=== PATIENT | male | born 1960 | race Two or more races ===

== ENCOUNTER 2021-12-01 06:06 | Observation (INO) | payer BC ==
[~2021-12-01] VITALS: Ht 172.7 cm; Wt 72.6 kg
[~2021-12-01 06:06] MED LIST: AMOXICILLIN500 M1 PO; CELEBREX200 MG PO; IBUPROFEN800 MG PO; LEVOTHYROXINE75 MCG PO; LOSARTAN POTASS25 MG PO; LYRICA75 MG PO; MELOXICAM PO; METHOCARBAMOL750 MG PO; METHYLPREDNISONE PO; TYLENOL WITH C1 EACH PO
[2021-12-01] MEDS ORDERED: CELECOXIB 200 MG CAP ONE (06:41)
[2021-12-01] MEDS ORDERED: DEXAMETHASONE SOD PHOS 10 MG/1 ML VIAL ONE (06:41)
[2021-12-01] MEDS ORDERED: GABAPENTIN 300 MG CAP ONE (06:42)
[2021-12-01] MEDS ORDERED: Vancomycin IV 1,000 MG ONE (06:56)
[2021-12-01] MEDS ORDERED: SODIUM CHLORIDE 0.9% 500ML 500 ML ONE (06:56)
[2021-12-01] MEDS ORDERED: TRANEXAMIC ACID 20 ML ONE (06:57)
[2021-12-01] MEDS ORDERED: ROPIVACAINE 246.25 MG, EPINEPHRINE HCL 1:1000 1ML 0.5 MG, CLONIDINE HCL 0.08 MG, KETORO... INJ ONE ×5 (08:00)
[2021-12-01] MEDS ORDERED: SODIUM CHLORIDE 0.9% 1000ML 1,000 ML IV SCH (08:45)
[2021-12-01] MEDS ORDERED: DIPHENHYDRAMINE HCL INJ 50 MG/ML VIAL IV PRN (08:45)
[2021-12-01] MEDS ORDERED: DOCUSATE SODIUM 100 MG CAP PO PRN (08:45)
[2021-12-01] MEDS ORDERED: HYDROCODONE/APAP 5MG-325MG TAB PO PRN (08:45)
[2021-12-01] MEDS ORDERED: ZOLPIDEM TARTRATE 5 MG TAB PO PRN (08:45)
[2021-12-01] MEDS ORDERED: ACETAMINOPHEN 650 MG SUPP PR PRN (08:45)
[2021-12-01] MEDS ORDERED: HYDROCODONE/APAP 7.5MG-325MG 1 EA TAB PO PRN (08:45)
[2021-12-01] MEDS ORDERED: KETOROLAC TROMETHAMINE 30 MG/ML VIAL IV PRN (08:45)
[2021-12-01] MEDS ORDERED: ONDANSETRON HCL INJ 2MG/ML 2ML 2 MG/ML VIAL IV PRN (08:45)
[2021-12-01] MEDS: CELECOXIB 100 MG CAP PO SCH ×2 (09:00→16:22)
[2021-12-01] MEDS: ASPIRIN 325 MG TAB PO SCH ×2 (09:00→16:22)
[2021-12-01 10:42] VITALS: BP 111/79
[2021-12-01 10:49] VITALS: BP 111/79
[2021-12-01 10:50] VITALS: BP 111/79
[2021-12-01] MEDS ORDERED: ACETAMINOPHEN 1000 MG/100 ML IV PRN (12:00)
[2021-12-01] MEDS ORDERED: PROPOFOL IV EMULSION 10 MG/ML 50 ML VIAL IV ONE (12:52)
[2021-12-01] MEDS ORDERED: POVIDONE IODINE 0.05% 0.05 % ML PO ONE (12:52)
[2021-12-01] MEDS ORDERED: FENTANYL CITRATE/PF 100MCG/2 ML INJ ONE (12:58)
[2021-12-01] MEDS ORDERED: KETAMINE HCL INJ 50 MG/ML 10 ML VIAL ONE (12:58)
[2021-12-01] MEDS ORDERED: MIDAZOLAM HCL 2 MG/2 ML VIAL ONE (12:58)
[2021-12-01 16:00] VITALS: BP 101/69
[2021-12-01] MEDS ORDERED: ASPIRIN81 MG PO (17:43)
== END 2021-12-01 18:26 | disposition home or self-care (01) ==
LOC: OR 06:06 → PACU V 08:39 → MED/SURG 10:22
PROVIDERS: ADMIT Specialist; ATTEND Specialist
DX: M87.852 Other osteonecrosis, left femur (principal); I10 Essential (primary) hypertension; Z20.822 Contact with and (suspected) exposure to COVID-19; Z01.818 Encounter for other preprocedural examination
CPT/HCPCS: 0223U; 27130; 36415; 72170; 86850; 86900; 86920; 94799; 97110; 97116; 97161; 97530 ×2; G0378; J0171; J0690; J1100; J1885; J2250; J2704; J2795; J3010; J3370; J7040; C1713; C1776

== ENCOUNTER 2022-02-16 07:30 | Observation (INO) | payer BC ==
[~2022-02-16] VITALS: Ht 177.8 cm; Wt 75.3 kg
[~2022-02-16 07:30] MED LIST changes: +ALBUTEROL0.63 MG/3 NEB; +ASPIRIN81 MG PO; +CELECOXIB 200 MG CAP ONE; +DEXAMETHASONE SOD PHOS 10 MG/1 ML VIAL ONE; +GABAPENTIN 300 MG CAP ONE; +SODIUM CHLORIDE 0.9% 500ML 0 ML ONE; +SODIUM CHLORIDE 0.9% 500ML 500 ML ONE; +TRANEXAMIC ACID 20 ML ONE; +Vancomycin IV 0 MG ONE; +Vancomycin IV 1,000 MG ONE
[2022-02-16] MEDS ORDERED: ROPIVACAINE 246.25 MG, EPINEPHRINE HCL 1:1000 1ML 0.5 MG, CLONIDINE HCL 0.08 MG, KETORO... INJ ONE ×5 (08:00)
[2022-02-16] MEDS ORDERED: SODIUM CHLORIDE 0.9% 250ML 250 ML ONE (09:08)
[2022-02-16] MEDS ORDERED: DOCUSATE SODIUM 100 MG CAP PO PRN (09:30)
[2022-02-16] MEDS ORDERED: DIPHENHYDRAMINE HCL INJ 50 MG/ML VIAL IV PRN (09:30)
[2022-02-16] MEDS ORDERED: HYDROCODONE/APAP 5MG-325MG TAB PO PRN (09:30)
[2022-02-16] MEDS: SODIUM CHLORIDE 0.9% 1000ML 1,000 ML IV SCH ×2 (11:00→21:56)
[2022-02-16] MEDS ORDERED: SODIUM CHLORIDE 0.9% 1000ML 1,000 ML ONE (12:13)
[2022-02-16 12:14] VITALS: BP 117/74
[2022-02-16] MEDS ORDERED: MIDAZOLAM HCL 2 MG/2 ML VIAL ONE (12:19)
[2022-02-16] MEDS ORDERED: FENTANYL CITRATE/PF 100MCG/2 ML INJ ONE (12:19)
[2022-02-16 12:24] VITALS: BP 117/74
[2022-02-16 12:42] VITALS: BP 117/74
[2022-02-16] MEDS ORDERED: PROPOFOL IV EMULSION 10 MG/ML 20 ML VIAL ONE (12:45)
[2022-02-16] MEDS ORDERED: PHENYLEPHRINE HCL 1% 10 MG/ML VIAL ONE (12:45)
[2022-02-16] MEDS ORDERED: POVIDONE IODINE 0.05% 0.05 % ML PO ONE (12:45)
[2022-02-16] MEDS ORDERED: EPHEDRINE SULFATE INJ 50 MG/ML VIAL ONE (12:45)
[2022-02-16] MEDS ORDERED: ACETAMINOPHEN 1000 MG/100 ML IV PRN (14:00)
[2022-02-16] MEDS: ONDANSETRON HCL INJ 2MG/ML 2ML 2 MG/ML VIAL IV PRN (14:24)
[2022-02-16] MEDS: HYDROCODONE/APAP 7.5MG-325MG 1 EA TAB PO PRN (14:24)
[2022-02-16 17:11] VITALS: BP 110/72
[2022-02-16] MEDS: CELECOXIB 100 MG CAP PO SCH (17:33)
[2022-02-16] MEDS: ASPIRIN 325 MG TAB PO SCH (17:34)
[2022-02-16] MEDS ORDERED: ASPIRIN81 MG PO (17:37)
[2022-02-16 20:00] VITALS: BP_SYST 101; BP_SYST 110; BP_DIAS 63; BP_DIAS 72
[2022-02-17] VITALS: BP 87/55
[2022-02-17 04:31] VITALS: BP 110/62
[2022-02-17] MEDS: ONDANSETRON HCL INJ 2MG/ML 2ML 2 MG/ML VIAL IV PRN (04:40)
[2022-02-17] MEDS: HYDROCODONE/APAP 7.5MG-325MG 1 EA TAB PO PRN (04:40)
[2022-02-17 04:55] LABS: HEMATOCRIT 37.3 % (38.2-49.6); HEMOGLOBIN 11.7 g/dL (14.0-18.0)
[2022-02-17] MEDS: SODIUM CHLORIDE 0.9% 1000ML 1,000 ML IV SCH (06:21)
[2022-02-17 07:51] VITALS: BP 102/61
[2022-02-17] MEDS: ASPIRIN 325 MG TAB PO SCH (09:36)
[2022-02-17] MEDS: CELECOXIB 100 MG CAP PO SCH (09:36)
[2022-02-17 11:41] VITALS: BP 96/62
== END 2022-02-17 11:49 | disposition home or self-care (01) ==
LOC: OR 07:30 → PACU V 09:42 → MED/SURG 11:40
PROVIDERS: ADMIT Specialist; ATTEND Specialist
DX: E03.9 Hypothyroidism, unspecified (principal); Z01.818 Encounter for other preprocedural examination; Z20.822 Contact with and (suspected) exposure to COVID-19
CPT/HCPCS: 0223U; 27447; 36415 ×2; 72170; 85014; 85018; 86850; 86900; 86920; 93005; 94799 ×2; 96361 ×2; 97110; 97116 ×2; 97162; 97530 ×2; C1713 ×2; C1776 ×3; G0378 ×2; J0171; J0690 ×2; J1100; J1885; J2250; J2370; J2405 ×2; J2704; J2795; J3010; J3370; J7030 ×2; J7040; J7050